=== PATIENT | female | born 1935 | race Caucasian/White ===

== ENCOUNTER 2016-09-02 18:34 | Emergency (ER) | payer OTHER ==
[~2016-09-02] VITALS: Ht 152.4 cm; Wt 64.4 kg
--- NOTE | ~2016-09-02 | EKG ---
[address] [place] [address] [place] [address] ELECTROCARDIOGRAM REPORT Name: RENAY SALCEDO [id number] Admission: 09/02/16 Attend Phys: Discharge: Date of : 37 Report #: [id number] THIS REPORT FOR: //name// [facility] ED Test Date: 2016-09-02 Test Time: 19:09:57 Pat Name: RENAY SALCEDO Department: Room: Gender: F Math Coach: LAURA RUBIO : 1935 Requested By: Sera Garcia Order Number: [id number] MD: Marcus Montgomery Measurements Intervals [place] Rate: 77 P: 0 RI: 75 QRS: 99 QRSD: 111 T: -11 QT: 456 QTc: 517 Interpretive Statements Sinus rhythm PAC with compensatory pause Short RI interval No previous ECG available for comparison Electronically Signed On 09-02-2016 21:03:59 CDT by Marcus Montgomery [email or web address] <ELECTRONICALLY SIGNED> By: Marcus Montgomery MD 09/02/16 2103 1909 190 MD KIERA Blanco
[2016-09-02 19:15] LABS: HEMATOCRIT 38.8 % (37.0-47.0); HEMOGLOBIN 12.4 gm/dL (12.0-15.0); MCH 29.1 pg (26.0-34.0); MCHC 31.9 g/dL (28.0-37.0); MCV 91.3 fL (80.0-100.0); PLATELET COUNT 218 thou/uL (150-400); RBC 4.25 mil/uL (4.20-5.00); RDW 16.1 % (10.5-14.5); WBC 13.1 thou/uL (4.0-11.0)
[2016-09-02 19:16] LABS: MANUAL DIFF YES
[2016-09-02 19:29] LABS: CALCIUM 8.7 mg/dL (8.5-10.1); CREATININE 1.1 mg/dL (0.6-1.0)
[2016-09-02 19:36] LABS: URINE BILIRUBIN NEGATIVE (Negative); URINE BLOOD TRACE (Negative); URINE COLOR YELLOW; URINE GLUCOSE-RANDOM* NEGATIVE (Negative); URINE KETONES TRACE (Negative); URINE LEUKOCYTES-REFLEX TRACE (Negative); URINE PROTEIN (DIPSTICK) 2+ (Negative); URINE SPECIFIC GRAVITY 1.025 (1.003-1.035)
[2016-09-02 19:44] LABS: SQUAMOUS 4-10 Moderate /LPF (0-3); URINE WBC-REFLEX 0-5 Rare /HPF (0-5)
[2016-09-02 19:45] LABS: CASTS None Seen /LPF (None Seen); CRYSTALS None Seen /LPF (None Seen); URINE RBC 0-2 Rare /HPF (0-2)
[2016-09-02 19:48] LABS: ABSOLUTE NEUTROPHILS 12.4 thou/uL (1.4-8.2); ANISOCYTOSIS 1+; TOTAL CELL COUNT 100
[2016-09-02] MEDS ORDERED: KEFLEX500 MG PO (20:40)
[2016-09-02] MEDS ORDERED: ZOFRAN ODT4 MG PO (20:40)
[2016-09-02 21:45] VITALS: BP 102/54
== END 2016-09-02 21:51 | disposition home or self-care (01) ==
LOC: ER 18:34
PROVIDERS: Emergency Medicine
DX: N39.0 Urinary tract infection, site not specified (principal); J44.9 Chronic obstructive pulmonary disease, unspecified; E11.9 Type 2 diabetes mellitus without complications; I50.9 Heart failure, unspecified; Z88.6 Allergy status to analgesic agent; Z88.0 Allergy status to penicillin; Z88.2 Allergy status to sulfonamides